=== PATIENT | female | born 1970 | race American Indian/Alaskan Native ===

== ENCOUNTER 2018-03-12 01:36 | Emergency (ER) | payer MEDICAID ==
[2018-03-12 03:04] LABS: Basophils # (Auto) 0.1 K/mm3 (0.0-0.1); Basophils % (Auto) 0.9 % (0.0-1.8); Eosinophils # (Auto) 0.6 K/mm3 (0.0-0.4); Eosinophils % (Auto) 6.7 % (0.0-4.3); Hematocrit 31.1 % (30.3-42.9); Hemoglobin 10.6 gm/dl (10.1-14.3); Lymphocytes # (Auto) 2.8 K/mm3 (1.2-5.4); Lymphocytes % (Auto) 32.4 % (13.4-35.0); Mean Corpuscular HGB Conc 34 % (30-34); Mean Corpuscular Hemoglobin 28 pg (28-32); Mean Corpuscular Volume 84 fl (79-97); Monocytes # (Auto) 0.7 K/mm3 (0.0-0.8); Monocytes % (Auto) 8.3 % (0.0-7.3); Platelet Count 233 K/mm3 (140-440); Red Blood Count 3.72 M/mm3 (3.65-5.03)
[2018-03-12 03:39] LABS: Calcium 8.6 mg/dL (8.4-10.2)
[2018-03-12 04:34] LABS: Bacteria,Urine 1+ /HPF (Negative); Bilirubin,Urine NEG (Negative); Blood,Urine NEG (Negative); Color,Urine Yellow (Yellow); Urobilinogen,Urine < 2.0 mg/dL (<2.0)
[2018-03-12] MEDS ORDERED: APRESOLINE IV ONE (08:43)
[2018-03-12] MEDS ORDERED: LASIX IV ONE (08:43)
[2018-03-12] MEDS ORDERED: HumuLIN R IV ONE (08:43)
--- NOTE | 2018-03-12 10:51 | Emergency Department Report ---
HPI - General Chief Complaint: Extremity Injury, Lower Time Seen by Provider: 03/12/18 08:41 - HPI HPI: The patient's 48-year-old female with a history of diabetes, hypertension, a stage I kidney disease, and who presents for evaluation of leg swelling. The patient reports 3 days of bilateral lower leg swelling, and mild tightness in quality pain to the bilateral lower legs, exacerbated with ambulation, improved with propping the feet. The patient denies fever, neck pain, parasthesias, dyspnea, cough, hemoptysis, palpitations, dizziness, syncope, unilateral leg swelling, calf muscle pain. Patient also denies cocaine or other stimulant use , history of DVT or PE, recent immobilization, or history of cancer. ED Past Medical Hx - Past Medical History Previous Medical History?: Yes Hx Hypertension: Yes Hx Diabetes: Yes - Surgical History Past Surgical History?: Yes Additional Surgical History: x1 - Social History Smoking Status: Never Smoker Substance Use Type: Alcohol - Medications Home Medications: Home Medications Medication Instructions Recorded Confirmed Last Taken Type Glimepiride [Amaryl] 4 mg PO DAILY 10/02/14 11/12/14 10/02/14 History Lisinopril/Hydrochlorothiazide 1 tab PO DAILY 10/02/14 11/12/14 10/02/14 History [Zestoretic 20-25 mg] Metformin HCl [Glucophage] 1,000 mg PO BID 10/02/14 11/12/14 10/02/14 History Amoxicillin [Amoxicillin TAB] 875 mg PO BID #20 tablet 11/12/14 Unknown Rx Benzonatate [Tessalon Perles] 100 mg PO Q8HR #20 capsule 11/12/14 Unknown Rx Fluticasone Propionate [Flonase] 100 mcg NS QDAY #1 spray.susp 11/12/14 Unknown Rx Ibuprofen [Motrin] 800 mg PO Q8H PRN #14 tablet 11/12/14 Unknown Rx Furosemide [Lasix] 20 mg PO QDAY #7 tablet 03/12/18 Unknown Rx amLODIPine [Norvasc] 5 mg PO DAILY #31 tab 03/12/18 Unknown Rx traMADol [Ultram 50 MG tab] 50 mg PO Q6HR PRN #10 tablet 03/12/18 Unknown Rx ED Review of Systems ROS: Stated complaint: BILATERAL LEG,FOOT PAIN Other details as noted in HPI Constitutional: denies: fever ENT: denies: throat or neck pain Respiratory: denies: cough, shortness of breath Cardiovascular: denies: chest pain Endocrine: denies unexplained weight loss or gain Gastrointestinal: denies: abdominal pain, nausea Genitourinary: denies: dysuria Musculoskeletal: reports: leg swelling Skin: denies: rash Neurological: denies: headache Hematological/Lymphatic: denies: easy bleeding or easy bruising Psych: denies sadness or hopelessness Physical Exam - Physical Exam Vital Signs: Vital Signs 03/12/18 03/12/18 03/12/18 01:46 08:41 08:45 Temperature 98.4 F Pulse Rate 85 Respiratory 18 Rate Blood Pressure 178/96 165/89 O2 Sat by Pulse 95 100 100 Oximetry 03/12/18 03/12/18 03/12/18 09:00 09:15 09:25 Temperature Pulse Rate Respiratory Rate Blood Pressure 159/77 162/82 178/96 O2 Sat by Pulse 99 99 Oximetry 03/12/18 03/12/18 03/12/18 09:30 09:45 10:00 Temperature Pulse Rate Respiratory Rate Blood Pressure 151/71 181/94 177/94 O2 Sat by Pulse 100 100 100 Oximetry 03/12/18 03/12/18 10:15 10:30 Temperature Pulse Rate Respiratory Rate Blood Pressure 189/102 177/91 O2 Sat by Pulse 98 97 Oximetry Physical Exam: General: well-nourished, well-developed, no acute distress Head: Normocephalic, atraumatic Eyes: normal sclera ENT: Mucous membranes are pink and moist Neck: trachea midline, neck supple, No neck stiffness, no cervical adenopathy Respiratory: Breath sounds equal bilaterally, no wheezing, rales, or rhonchi Cardio: S1 and S2 present, no murmurs, rubs, gallops, capillary refill is brisk Abdomen: Normoactive bowel sounds, soft abdomen, no tenderness Musc: 1+ pitting edema of bilateral lower limits, no Muscle tenderness, leg compartments are soft and pliable, no signs of compartment syndrome, sensation, motor function, and pulses intact in the distal lower extremities Skin: No rash Neuro: no facial drooping, normal speech Psych: Normal affect ED Course Vital Signs 03/12/18 03/12/18 03/12/18 01:46 08:41 08:45 Temperature 98.4 F Pulse Rate 85 Respiratory 18 Rate Blood Pressure 178/96 165/89 O2 Sat by Pulse 95 100 100 Oximetry 03/12/18 03/12/18 03/12/18 09:00 09:15 09:25 Temperature Pulse Rate Respiratory Rate Blood Pressure 159/77 162/82 178/96 O2 Sat by Pulse 99 99 Oximetry 03/12/18 03/12/18 03/12/18 09:30 09:45 10:00 Temperature Pulse Rate Respiratory Rate Blood Pressure 151/71 181/94 177/94 O2 Sat by Pulse 100 100 100 Oximetry 03/12/18 03/12/18 10:15 10:30 Temperature Pulse Rate Respiratory Rate Blood Pressure 189/102 177/91 O2 Sat by Pulse 98 97 Oximetry ED Medical Decision Making - Lab Data Result diagrams: 03/12/18 02:42 03/12/18 02:42 - Medical Decision Making The patient was seen and examined by myself. The patient is placed on a threat monitoring analyst and continuous pulse ox. On initial evaluation, the patient was found to be in no distress. EKG was negative for findings suggestive of acute cardiac infarct. Labs and imaging are obtained. The patient given a Lasix for treatment of her leg swelling and IV hydralazine for treatment of her elevated blood pressure. Lab results revealed elevated glucose of greater than 200, and mildly elevated creatinine 1.7, consistent with patient no history of stage I CKG, and otherwise labs were non-revealing including nml levels of bicarb, WBC, electrolytes, urinalysis. The patient was reevaluated and reported that their symptoms were markedly improved. The patient is stable for discharge with outpatient follow-up. The patient is given follow-up and return instructions. The patient expressed understanding and agreed with the plan. The patient is discharged in stable condition. Critical care attestation.: If time is entered above; I have spent that time in minutes in the direct care of this critically ill patient, excluding procedure time. ED Disposition Clinical Impression: Bilateral edema of lower extremity, Hypertensive urgency, Acute hyperglycemia, CKD (chronic kidney disease), stage I Disposition: -01 TO HOME OR SELFCARE Is pt being admited?: No Does the pt Need Aspirin: No Condition: Stable Instructions: Heart Failure (ED), Heart Healthy Diet (ED), Leg Edema (ED), DASH Eating Plan (ED), Low Sodium Diet (ED), Hypertension (ED) Prescriptions: amLODIPine [Norvasc] 5 mg PO DAILY #31 tab Furosemide [Lasix] 20 mg PO QDAY #7 tablet traMADol [Ultram 50 MG tab] 50 mg PO Q6HR PRN #10 tablet PRN Reason: Pain Referrals: PRIMARY CARE,MD [Primary Care Provider] - 3-5 Days Time of Disposition: 10:47
[2018-03-12 12:07] VITALS: BP 138/80
== END 2018-03-12 12:00 | disposition home or self-care (01) ==
LOC: ED 01:36
DX: R60.0 Localized edema (principal); E11.22 Type 2 diabetes mellitus with diabetic chronic kidney disease; E11.65 Type 2 diabetes mellitus with hyperglycemia; I16.0 Hypertensive urgency; I12.9 Hypertensive chronic kidney disease with stage 1 through stage 4 chronic kidney disease, or unspecified chronic kidney disease; N18.1 Chronic kidney disease, stage 1; Z79.84 Long term (current) use of oral hypoglycemic drugs
CPT/HCPCS: 36415; 80048; 81001; 85025; 96374; 96375; 99284; J0360; J1940; J1815

== ENCOUNTER 2018-11-01 21:08 | Emergency (ER) | payer MEDICAID ==
--- NOTE | 2018-11-01 23:33 | XRay Report ---
FINAL REPORT PROCEDURE: XR CHEST ROUTINE 2V TECHNIQUE: PA and lateral chest radiographs were obtained. CPT 44686 HISTORY: sob/cough COMPARISON: No prior studies are available for comparison. FINDINGS: Heart: Normal. Mediastinum/Vessels: Normal. Lungs/Pleural space: Normal. Bony thorax: No acute osseous abnormality. Other: IMPRESSION: Normal examination.
[2018-11-02 01:26] LABS: Bilirubin,Urine NEG (Negative); Blood,Urine SM (Negative); Color,Urine Yellow (Yellow); Urobilinogen,Urine < 2.0 mg/dL (<2.0)
--- NOTE | 2018-11-02 01:46 | Emergency Department Report ---
Addendum entered and electronically signed by LIBORIO MORELOS PA 11/02/18 02:42: Addendum to the medical decision making. Blanka Pruitt was discussing HIPPA rules with neighbor impatience upon my entry into the room to conduct her history, physical examination. She appeared to be irritated with her placement in the emergency department and for other reasons. At that she did not care to discuss. I offered to remove her from her current location and take her to a private room. Once it was clear which would have been about another 10 minutes. However, she declined twice. She was quite defensive and very short with her history, responses which did compromise. Some of the history and advised that I get her out of. He is quickly as possible. She just wants to go. Upon evaluation of her chest x-ray and examination discharge packet was prepared. She tried a few times to get more cough medications. Original Note: - General Chief Complaint: Upper Respiratory Infection Stated Complaint: SOB/COUGH Time Seen by Provider: 11/02/18 01:28 Source: patient Mode of arrival: Ambulatory Limitations: No Limitations - History of Present Illness Initial Comments: 48-year-old female posttreatment she department complaining of a two-week history of cough and can congestion. Seen at urgent care which was prescribed cough medication but states it did not help coughing, more frequent: Pain tularemia and occasional stress incontinence. No abdominal pain, nausea, vomiting, hematuria, hemoptysis, hematemesis, hematochezia. Mild phlegm MD Complaint: cough, rhinorrhea, nasal congestion -: week(s) (2) Severity: mild Quality: dull Improves With: nothing Context: sick contacts Associated Symptoms: rhinorrhea, nasal congestion, cough. denies: diaphoresis, shortness of breath, confusion, right sweats, weight loss, hoarseness, ear pain - Related Data Home Medications Medication Instructions Recorded Confirmed Last Taken Glimepiride [Amaryl] 4 mg PO DAILY 10/02/14 11/12/14 10/02/14 Lisinopril/Hydrochlorothiazide 1 tab PO DAILY 10/02/14 11/12/14 10/02/14 [Zestoretic 20-25 mg] Metformin HCl [Glucophage] 1,000 mg PO BID 10/02/14 11/12/14 10/02/14 Previous Rx's Medication Instructions Recorded Last Taken Type Amoxicillin [Amoxicillin TAB] 875 mg PO BID #20 tablet 11/12/14 Unknown Rx Benzonatate [Tessalon Perles] 100 mg PO Q8HR #20 capsule 11/12/14 Unknown Rx Fluticasone Propionate [Flonase] 100 mcg NS QDAY #1 spray.susp 11/12/14 Unknown Rx Ibuprofen [Motrin] 800 mg PO Q8H PRN #14 tablet 11/12/14 Unknown Rx Furosemide [Lasix] 20 mg PO QDAY #7 tablet 03/12/18 Unknown Rx amLODIPine [Norvasc] 5 mg PO DAILY #31 tab 03/12/18 Unknown Rx traMADol [Ultram 50 MG tab] 50 mg PO Q6HR PRN #10 tablet 03/12/18 Unknown Rx ALBUTEROL Inhaler (OR & NICU) 1 puff IH Q4-6H PRN #1 inha 11/02/18 Unknown Rx [ProAir HFA Inhaler] Azithromycin [Zithromax] 500 mg PO QDAY #3 tablet 11/02/18 Unknown Rx guaiFENesin/CODEINE [Robitussin AC] 5 ml PO Q6H PRN #120 ml 11/02/18 Unknown Rx predniSONE [Deltasone] 20 mg PO QDAY #5 tab 11/02/18 Unknown Rx Allergies Allergy/AdvReac Type Severity Reaction Status Date / Time No Known Allergies Allergy Unverified 10/02/14 12:39 ED Review of Systems ROS: Stated complaint: SOB/COUGH Other details as noted in HPI Constitutional: denies: chills, fever Eyes: denies: eye pain, eye discharge, vision change ENT: denies: ear pain, throat pain Respiratory: cough. denies: shortness of breath, wheezing Cardiovascular: denies: chest pain, palpitations Endocrine: no symptoms reported Gastrointestinal: denies: abdominal pain, nausea, diarrhea Genitourinary: denies: urgency, dysuria, discharge Musculoskeletal: denies: back pain, joint swelling, arthralgia Skin: denies: rash, lesions Neurological: denies: headache, weakness, paresthesias Psychiatric: denies: anxiety, depression Hematological/Lymphatic: denies: easy bleeding, easy bruising ED Past Medical Hx - Past Medical History Previous Medical History?: Yes Hx Hypertension: Yes Hx Diabetes: Yes - Surgical History Past Surgical History?: Yes Additional Surgical History: x1 - Social History Smoking Status: Never Smoker Substance Use Type: None - Medications Home Medications: Home Medications Medication Instructions Recorded Confirmed Last Taken Type Glimepiride [Amaryl] 4 mg PO DAILY 10/02/14 11/12/14 10/02/14 History Lisinopril/Hydrochlorothiazide 1 tab PO DAILY 10/02/14 11/12/14 10/02/14 History [Zestoretic 20-25 mg] Metformin HCl [Glucophage] 1,000 mg PO BID 10/02/14 11/12/14 10/02/14 History Amoxicillin [Amoxicillin TAB] 875 mg PO BID #20 tablet 11/12/14 Unknown Rx Benzonatate [Tessalon Perles] 100 mg PO Q8HR #20 capsule 11/12/14 Unknown Rx Fluticasone Propionate [Flonase] 100 mcg NS QDAY #1 spray.susp 11/12/14 Unknown Rx Ibuprofen [Motrin] 800 mg PO Q8H PRN #14 tablet 11/12/14 Unknown Rx Furosemide [Lasix] 20 mg PO QDAY #7 tablet 03/12/18 Unknown Rx amLODIPine [Norvasc] 5 mg PO DAILY #31 tab 03/12/18 Unknown Rx traMADol [Ultram 50 MG tab] 50 mg PO Q6HR PRN #10 tablet 03/12/18 Unknown Rx ALBUTEROL Inhaler (OR & NICU) 1 puff IH Q4-6H PRN #1 inha 11/02/18 Unknown Rx [ProAir HFA Inhaler] Azithromycin [Zithromax] 500 mg PO QDAY #3 tablet 11/02/18 Unknown Rx guaiFENesin/CODEINE [Robitussin AC] 5 ml PO Q6H PRN #120 ml 11/02/18 Unknown Rx predniSONE [Deltasone] 20 mg PO QDAY #5 tab 11/02/18 Unknown Rx ED Physical Exam - General Limitations: No Limitations General appearance: alert, in no apparent distress - Head Head exam: Present: atraumatic, normocephalic - Eye Eye exam: Present: normal appearance, PERRL, EOMI Pupils: Present: normal accommodation - ENT ENT exam: Present: normal exam, mucous membranes moist - Neck Neck exam: Present: normal inspection, full ROM - Respiratory Respiratory exam: Present: normal lung sounds bilaterally. Absent: respiratory distress, wheezes, rales, rhonchi, chest wall tenderness, accessory muscle use, decreased breath sounds - Cardiovascular Cardiovascular Exam: Present: regular rate, normal rhythm. Absent: systolic murmur, diastolic murmur, rubs, gallop - GI/Abdominal GI/Abdominal exam: Present: soft, normal bowel sounds - Extremities Exam Extremities exam: Present: normal inspection, full ROM, normal capillary refill - Back Exam Back exam: Present: normal inspection. Absent: CVA tenderness (R), CVA tenderness (L) - Neurological Exam Neurological exam: Present: alert, oriented X3, CN II-XII intact, normal gait - Psychiatric Psychiatric exam: Present: normal affect, normal mood - Skin Skin exam: Present: warm, dry, intact, normal color. Absent: rash ED Course Vital Signs 11/01/18 21:54 Temperature 98.2 F Pulse Rate 95 H Respiratory 16 Rate Blood Pressure 169/89 O2 Sat by Pulse 98 Oximetry ED Medical Decision Making - Radiology Data Radiology results: report reviewed normal exam Critical care attestation.: If time is entered above; I have spent that time in minutes in the direct care of this critically ill patient, excluding procedure time. ED Disposition Clinical Impression: Cough, URI (upper respiratory infection) Disposition: - TO HOME OR SELFCARE Is pt being admited?: No Does the pt Need Aspirin: No Condition: Stable Instructions: Upper Respiratory Infection (ED) Referrals: PRIMARY CARE, [Primary Care Provider] - 3-[address] [facility] [Provider Group] - 3-5 Days
[2018-11-02 03:40] VITALS: BP 176/84
== END 2018-11-02 03:00 | disposition home or self-care (01) ==
LOC: ED 21:08
DX: J06.9 Acute upper respiratory infection, unspecified (principal); I10 Essential (primary) hypertension; E11.9 Type 2 diabetes mellitus without complications
CPT/HCPCS: 71046; 81003; 87086

== ENCOUNTER 2019-09-10 12:50 | Outpatient (CLI) | payer MEDICAID ==
--- NOTE | 2019-09-11 13:17 | Mammography Report ---
DIGITAL SCREENING MAMMOGRAM WITH CAD, 09/10/2019 INDICATION: Routine screening mammography. TECHNIQUE: Digital bilateral 2D mammography was obtained in the craniocaudal and mediolateral obliq ue projections. This examination was interpreted with the benefit of Computer-Aided Detection analysi s. COMPARISON: 05/09/2012 FINDINGS: Breast Density: The breasts are heterogeneously dense, which may obscure small masses. There is no evidence of dominant mass, suspicious calcifications or architectural distortion in eithe r breast. IMPRESSION: No mammographic evidence of malignancy. Follow up recommendation: Routine yearly BI-RADS Category 2: Benign. A "normal" or negative report should not discourage follow up or biopsy of a clinically significant f inding. A written summary of these findings will be mailed to the patient. The patient will be entered into a mammography reporting system which will generate a reminder letter for the patient's next appointmen t at the appropriate interval. The [employer] recommends yearly mammograms starting at age 40 and continuing as l matthias as a woman is in good health. Breast MRI is recommended for women with an approximate 20-25% or greater lifetime risk of breast cancer, including women with a strong family history of breast or ova boo cancer or who have been treated for Hodgkin's disease. Signer Name: Riky Goldstein MD Signed: 09/11/2019 1:13 PM Workstation Name: [id number]
== END 2019-09-10 12:51 | disposition home or self-care (01) ==
LOC: MAMMO 12:50
PROVIDERS: ATTEND Family Medicine
DX: Z12.31 Encounter for screening mammogram for malignant neoplasm of breast (principal); I10 Essential (primary) hypertension
CPT/HCPCS: 77067

== ENCOUNTER 2021-11-24 06:01 | Day surgery (SDC) | payer MEDICARE ==
[~2021-11-24 06:01] MED LIST: ceFAZolin/STERILE WATER 2 GM/20 ML SYRINGE IV NR
[2021-11-24] MEDS ORDERED: SODIUM CHLORIDE 0.9% 1000 ML 1,000 ML ONE (06:20)
[2021-11-24] MEDS ORDERED: DEXTROSE 50% IN WATER (25GM) 50 ML SYRINGE IV ONE ×6 (06:45→09:56)
[2021-11-24 06:53] LABS: Hematocrit 25.8 % (30.3-42.9); Hemoglobin 8.1 gm/dl (10.1-14.3); Mean Corpuscular HGB Conc 31 % (30-34); Mean Corpuscular Volume 92 fl (79-97); Red Blood Count 2.79 M/mm3 (3.65-5.03); Red Cell Distribution Width 16.8 % (13.2-15.2)
[2021-11-24 06:55] LABS: Platelet Count 138 K/mm3 (140-440)
[2021-11-24 07:04] LABS: Calcium 8.7 mg/dL (8.4-10.2)
--- NOTE | 2021-11-24 07:48 | Anesthesia Day of Surgery ---
Anesthesia Day of Surgery - Day of Surgery Patient Examined: Yes Patient H&P Reviewed: Yes Patient is NPO: Yes
--- NOTE | 2021-11-24 07:50 | Anesthesia Consultation ---
Anesthesia Consult and Med Hx Date of service: 11/24/21 - Airway Anesthetic Teeth Evaluation: Good (Missing) ROM Head & Neck: Adequate Mental/Hyoid Distance: Adequate Mallampati Class: Class III Intubation Access Assessment: Probably Good - Pre-Operative Health Status ASA Pre-Surgery Classification: ASA3 Proposed Anesthetic Plan: General - Pulmonary Hx Smoking: No - Cardiovascular System Hx Hypertension: Yes (CONTROLLED) Hx Coronary Artery Disease: No (Had eval for bariatric surgery. Stress test and echo) - Central Nervous System Hx Psychiatric Problems: No - Gastrointestinal Hx Gastroesophageal Reflux Disease: No - Endocrine Hx Renal Disease: Yes Hx End Stage Renal Disease: Yes (Last HD yesterday) Hx Non-Insulin Dependent Diabetes: Yes (FBS 37-->114 after D50) - Hematic Hx Anemia: Yes Hx Sickle Cell Disease: No - Other Systems Hx Alcohol Use: No Hx Substance Use: No Hx Cancer: No Hx Obesity: Yes
[2021-11-24] MEDS ORDERED: SODIUM CHLORIDE 0.9% 1000 ML 1,000 ML IV SCH (08:00)
[2021-11-24] MEDS ORDERED: MIDAZOLAM 2 MG/2 ML INJ IV NR (08:00)
[2021-11-24] MEDS ORDERED: ONDANSETRON 4 MG/2 ML INJ IV PRN (08:00)
[2021-11-24] MEDS ORDERED: HYDROmorphone 1 MG/1 ML INJ IV PRN ×2 (08:30)
[2021-11-24] MEDS ORDERED: HYDROmorphone 1 MG/1 ML INJ ONE (09:44)
[2021-11-24] MEDS ORDERED: propofoL 200 MG/20 ML VIAL IV ONE (09:44)
[2021-11-24] MEDS ORDERED: LIDOCAINE MPF (2%) 20 MG/1 ML VIAL 5 ML ONE (09:45)
[2021-11-24] MEDS ORDERED: rifAMPin 600 MG VIAL ONE (09:48)
[2021-11-24] MEDS ORDERED: SODIUM CHLORIDE 0.9% 500 ML 500 ML ONE (09:48)
[2021-11-24] MEDS ORDERED: HEPARIN 10,000 UNITS/10 ML VIAL ONE (09:48)
[2021-11-24] MEDS ORDERED: BUPIVACAINE/PF (0.5%) 5 MG/1 ML 30 ML VIAL INFILTRATI ONE ×2 (09:48→10:58)
[2021-11-24] MEDS ORDERED: SODIUM CHLORIDE 0.9% 250ML 0 ML ONE (09:48)
--- NOTE | 2021-11-24 09:58 | Short Stay Summary ---
Short Stay Documentation Date of service: 11/24/21 Narrative H&P: The patient is a 51-year-old female with a history of end-stage renal disease who is currently on hemodialysis through a left brachiocephalic arteriovenous fistula. She presented to the office with complaints of difficulty accessing the fistula and pulling clots while on dialysis. She recently underwent a fistulogram that demonstrated a stenosis in the cephalic arch that was treated with angioplasty, relieving the venous outflow stenosis, however a bedside ultrasound demonstrated that the venous outflow portion of the fistula was approximately a centimeter more deep making the upper arm portion of the fistula difficult access. 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 She is in need of revision of the arterial anastomosis to reduce the size of the fistula as well as elevation of the venous outflow of the cannulation zone to assist with cannulating the fistula. She was given the risk, benefits, and alternative procedures and consented to the procedure. - History Past Medical History: diabetes, dialysis, ESRD, GERD, hypertension Past Surgical History: , Other (Creation of left brachiocephalic arteriovenous fistula, laser surgery to bilateral eyes) Social history: no significant social history - Allergies and Medications Current Medications: Allergies Sulfa (Sulfonamide Antibiotics) Allergy (Verified 11/18/21 15:21) Itching Home Medications Medication Instructions Recorded Confirmed Last Taken Type traMADoL [Ultram 50 MG tab] 50 mg PO Q6HR PRN #10 tablet 03/12/18 11/18/21 Unknown Rx Ergocalciferol(Vitamin D2)(Nf) 1,000 mg PO DAILY 11/18/21 11/18/21 Unknown History [Vitamin D (Nf)] Gabapentin [Neurontin] 300 mg PO HS 11/18/21 11/18/21 Unknown History Insulin NPH/Regular [Novolin 70/30] 1 unit SUB-Q PRN PRN 11/18/21 11/18/21 Unknown History hydroCHLOROthiazide 100 mg PO BID 11/18/21 11/18/21 Unknown History [Hydrochlorothiazide] Active Medications Cefazolin Sodium (Cefazolin/Sterile Water 2 Gm/20 Ml Syringe) 2 gm IV PREOP NR Stop: 11/24/21 23:01 Hydromorphone HCl (Hydromorphone 1 Mg/1 Ml Inj) 0.25 mg IV Q10MIN PRN PRN Reason: Pain, Moderate (4-6) Stop: 11/24/21 17:00 Hydromorphone HCl (Hydromorphone 1 Mg/1 Ml Inj) 0.5 mg IV Q10MIN PRN PRN Reason: Pain , Severe (7-10) Stop: 11/24/21 18:00 Sodium Chloride (Nacl 0.9% 1000 Ml) 1,000 mls @ 42 mls/hr IV DIRECT PATRICIA Last Admin: 11/24/21 06:45 Dose: 42 mls/hr Midazolam HCl (Midazolam 2 Mg/2 Ml Inj) 2 mg IV PREOP NR Stop: 11/24/21 23:59 Last Admin: 11/24/21 09:42 Dose: 2 mg Ondansetron HCl (Ondansetron 4 Mg/2 Ml Inj) 4 mg IV ONCE PRN PRN Reason: Nausea And Vomiting Stop: 11/24/21 17:00 - Physical exam General appearance: no acute distress Lungs: Normal air movement Breasts: deferred Gastrointestinal: normal Female Genitourinary: deferred Rectal Exam: deferred Extremities: pulses intact (Palpable left radial pulse), abnormal (Palpable thrill in left arm arteriovenous fistula with aneurysmal dilatation of the arterial anastomosis, ecchymosis over the venous outflow) - Brief post op/procedure progress note Date of procedure: 11/24/21 Pre-op diagnosis: Complications of Dialysis Access Post-op diagnosis: same Procedure: 1. Revision with Elevation of Left Brachiocephalic Arteriovenous Fistula Anesthesia: GETA Surgeon: BAILEE PEARCE Estimated blood loss: minimal Pathology: list (Portion of left arm AV fistula arterial anastomosis) Specimen disposition: discarded Condition: stable - Disposition Condition at discharge: Good Disposition: 01 HOME / SELF CARE / HOMELESS Short Stay Discharge Plan Activity: other (No heavy lifting with left arm for 2 weeks. Do not access the upper arm portion of the left arm AV fistula until cleared by vascular surgeon.) Wound: open to air, keep clean and dry, other (Okay to shower and wash the wound with soap and water but do not soak in water for 2 weeks.) Follow up with: BAILEE PEARCE MD [Staff Physician] - 14 Days Prescriptions: Oxycodone HCl/Acetaminophen [Percocet 7.5/325 mg] 1 each PO Q6HR PRN #40 tab PRN Reason: Pain
[2021-11-24] MEDS ORDERED: PHENYLEPHRINE/NS 1,000 MCG/10 ML SYRINGE (OR USE) IV ONE (10:37)
[2021-11-24] MEDS ORDERED: HEPARIN 10,000 UNITS/10 ML VIAL IR ONE (10:59)
[2021-11-24] MEDS ORDERED: SODIUM CHLORIDE 0.9% 500 ML IVPB IRRIGATION ONE (10:59)
[2021-11-24] MEDS ORDERED: SODIUM CHLORIDE 0.9% IRR 1,500 ML BOTTLE IR ONE (11:01)
--- NOTE | 2021-11-24 12:51 | Operative Report ---
Operative Report Operative Report: Date of Procedure: 11/24/2021 Pre-operative Diagnosis: Complications of Dialysis Access Post-operative Diagnosis: Same Procedure(s): 1. Revision with Elevation of Left Brachiocephalic Arteriovenous Fistula Surgeon: Israel Hancock M.D. Catalytic Converter Operator Helper: Sal Anesthesia: General Endotracheal Anesthesia EBL: Minimal Counts: Correct Complications: None Condition: Stable Findings: Palpable thrill in the left arm arteriovenous fistula at the completion of the case. Specimen: Small portion of the left arm arteriovenous fistula arterial anastomosis was discarded. Indication: The patient is a 51-year-old female with a history of end-stage renal disease who is on hemodialysis through a left brachiocephalic arteriovenous fistula. 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 She is in need of revision of the arterial anastomosis as well as revision with elevation of the upper arm portion of the fistula. She was given the risk, benefits, and alternative procedures and consented to the procedure. Description of Procedure: The patient was brought to the operating room and laid in supine position. After general endotracheal anesthesia was achieved her left arm was prepped and draped in normal sterile fashion. A longitudinal incision was created on the left arm extending from the upper arm to the mid arm medial to the fistula. A combination of cautery and sharp dissection was used to carry the dissection down to the fistula. Sharp dissection was used to circumferentially dissect around the fistula and all side branches were ligated and divided. Once the fistula had been dissected circumferentially throughout the entire incision a subcutaneous flap was made on the lateral edge of the incision just below the dermis. Hemostasis in the wound was then achieved with a combination of cautery and quick clot. I then used a 10 blade to create an incision through the previous incision for the arterial anastomosis. Sharp dissection was used to carry the dissection down to the arterial inflow of the fistula and once this was dissected circumferentially the arterial inflow of the fistula was controlled with 2 angled DeBakey clamps. Curved Mayos were used to resect the anterior surface of the arterial inflow the fistula, that had become aneurysmal, and the venotomy was closed using two 6-0 Prolene's in running fashion. Prior to completing the closure the venous outflow as well as the arterial inflow were flashed and reclamped. The fistula was then flushed with heparinized saline and the closure was completed. All clamps were removed and the outflow of the fistula which had a palpable thrill. Hemostasis within that wound was achieved with quick clot. Once hemostasis was adequately achieved both wounds were anesthetized with 0.5% Marcaine. 3-0 Vicryl in interrupted fashion was then used to secure the fistula within the previously created subcutaneous pocket. The wounds were then closed in 2 layers using 3-0 Vicryl in running fashion the deep dermal layer, 4-0 Monocryl in running fashion in the subcuticular layer, and then dressed with Dermabond. The patient tolerated the procedure well. All sponge, needle, and instrument counts were correct. The patient was taken to the recovery area in stable condition.
[2021-11-24 15:18] VITALS: BP 162/83
== END 2021-11-24 15:00 | disposition home or self-care (01) ==
LOC: OR 06:01
PROVIDERS: ATTEND Surgery Vascular Surgery
DX: T82.898A Other specified complication of vascular prosthetic devices, implants and grafts, initial encounter (principal); I12.0 Hypertensive chronic kidney disease with stage 5 chronic kidney disease or end stage renal disease; E11.22 Type 2 diabetes mellitus with diabetic chronic kidney disease; N18.6 End stage renal disease; Z99.2 Dependence on renal dialysis; Z20.822 Contact with and (suspected) exposure to COVID-19; E66.9 Obesity, unspecified; Z79.899 Other long term (current) drug therapy; Z98.890 Other specified postprocedural states; Y83.8 Other surgical procedures as the cause of abnormal reaction of the patient, or of later complication, without mention of misadventure at the time of the procedure
CPT/HCPCS: 36415; 36832; 80048; 82962; 85027; J0690; J1170; J1644; J2250; J2370; J2704; J3490; J7030; J7040; U0003; J7120; Q0162; J7050